=== PATIENT | female | born 1965 | race Caucasian/White ===

== ENCOUNTER → 2023-08-24 13:23 | Outpatient (REF) | payer BC, SELFPAY | LOC: RAD 13:23 | PROVIDERS: ATTENDING PHYSICIAN Urology; FAMILY PHYSICIAN Nurse Practitioner Family | DX: R31.0 Gross hematuria (principal) | CPT/HCPCS: 74178; Q9967 ==

== ENCOUNTER → 2024-07-01 16:08 | Outpatient (REF) | payer BC, SELFPAY ==
[2024-07-01 16:52] LABS: % Basophils 1.1 % (0-2); % Eosinophils 2.7 % (0-6); % Immature Granulocytes 0.2 % (0-0.5); % Lymphocytes 29.2 % (20.5-51.1); % Monocytes 6.1 % (1.7-9.3); % Neutrophils 60.7 % (42.2-75.2); Absolute Basophils 0.1 10^3/uL (0-0.2); Absolute Eosinophils 0.1 10^3/uL (0-0.7); Absolute Lymphocytes 1.4 10^3/uL (1.2-3.4); Absolute Monocytes 0.3 10^3/uL (0.1-0.6); Absolute Neutrophils 2.9 10^3/uL (1.4-6.5); Hematocrit 38.9 % (37.0-47.0); Hemoglobin 13.1 g/dL (12.0-16.0); Mean Corp Hgb Conc. 33.7 g/dL (33.0-37.0); Mean Corpuscular Hgb 31.4 pg (27.0-31.0); Mean Corpuscular Volume 93.3 fL (81.0-99.0); Mean Platelet Volume 8.9 fL (7.4-10.4); Nucleated Red Blood Cells % 0 %; Platelet Count 259 10^3/uL (130-400); Red Blood Cell Count 4.17 10^6/uL (4.20-5.40); Red Cell Dist. Width 12.3 % (11.5-14.5); White Blood Cell Count 4.8 10^3/uL (4.8-10.8)
[2024-07-01 17:05] LABS: Blood Urea Nitrogen 16 mg/dl (7-17); Calcium 9.5 mg/dl (8.4-10.2); Carbon Dioxide 25 mmol/L (22-30); Chloride 104 mmol/L (98-107); Glucose 87 mg/dl (70-99); Potassium 4.6 mmol/L (3.5-5.1); Sodium 140 mmol/L (135-145); eGFR > 60.00
== END ==
LOC: REG 16:08
PROVIDERS: ATTENDING PHYSICIAN Neurological Surgery; FAMILY PHYSICIAN Nurse Practitioner Family
DX: K57.92 Diverticulitis of intestine, part unspecified, without perforation or abscess without bleeding (principal)
CPT/HCPCS: 36415; 80048; 85025

== ENCOUNTER → 2024-07-02 16:21 | Outpatient (REF) | payer BC, SELFPAY | LOC: RAD 16:21 | PROVIDERS: ATTENDING PHYSICIAN Nurse Practitioner; FAMILY PHYSICIAN Nurse Practitioner Family | DX: K57.92 Diverticulitis of intestine, part unspecified, without perforation or abscess without bleeding (principal) | CPT/HCPCS: 74177; Q9967 ==

== ENCOUNTER → 2024-11-20 07:31 | Outpatient (REF) | payer BC, SELFPAY | LOC: PAVMRI 07:31 | PROVIDERS: ATTENDING PHYSICIAN Internal Medicine Gastroenterology; FAMILY PHYSICIAN Nurse Practitioner Family | DX: K86.2 Cyst of pancreas (principal) | CPT/HCPCS: 74183; A9575 ==

== ENCOUNTER 2024-12-19 06:24 | Day surgery (SDC) | payer BC, SELFPAY | END 2024-12-19 15:54 | disposition home or self-care (01) | LOC: GI 06:24 | PROVIDERS: ATTENDING PHYSICIAN Internal Medicine Gastroenterology | DX: Z12.11 Encounter for screening for malignant neoplasm of colon (principal); K51.00 Ulcerative (chronic) pancolitis without complications; K57.32 Diverticulitis of large intestine without perforation or abscess without bleeding; K63.5 Polyp of colon | CPT/HCPCS: 45380; 88305 ==